=== PATIENT | male | born 1960 | race Two or more races ===

== ENCOUNTER 2020-08-11 15:08 | Emergency (ER) | payer BC ==
[~2020-08-11] VITALS: Ht 185.4 cm; Wt 100.0 kg
--- NOTE | 2020-08-11 15:22 | NUR ---
SYNCOPE AT WORK, FELL OUT OF CHAIR NO URINARY INCOTINENCE HX OF SAME 3 YEARS AGO WITH CARDIOLOGY F/U-NO OBVIOUS CAUSE ROOM AIR 86-88%-DENIES SOB, CP DIABETIC-FSBS 160 ECG OBTAINED PLACED ON SWATCH CHECKER
[2020-08-11] MEDS ORDERED: METF500T27 PO (15:32)
[2020-08-11] MEDS ORDERED: LISI-170 PO (15:32)
[2020-08-11] MEDS ORDERED: EMPA10TA PO (15:32)
[2020-08-11] MEDS ORDERED: GLYB3TAB3 PO (15:32)
[2020-08-11] MEDS ORDERED: SIMV10TA18 PO (15:32)
[2020-08-11 16:10] LABS: BASOPHILS % (AUTO) 1 % (0-1); EOSINOPHILS % (AUTO) 1 % (1-7); LYMPHOCYTES % (AUTO) 30 % (22-44); MEAN CORPUSCULAR HGB CONC 33.6 g/dL (33.2-36.2); MEAN PLATELET VOLUME 8.5 fL (7.4-10.4); MONOCYTES % (AUTO) 9 % (2-9); NEUTROPHILS % (AUTO) 59 % (42-75); PLATELET COUNT 198 x10^3/uL (130-400); RED BLOOD COUNT 4.94 x10^6/uL (4.38-5.82); RED CELL DISTRIBUTION WIDTH 12.9 % (9.4-14.8)
[2020-08-11 16:12] LABS: MD NO
[2020-08-11 16:19] LABS: ALBUMIN 4.3 g/dL (3.4-5.0); ANION GAP 10 mmol/L (5-15); CALCIUM 9.2 mg/dL (8.5-10.1); CHLORIDE 106 mmol/L (98-107); CREATININE 1.12 mg/dL (0.7-1.3)
[2020-08-11 16:23] LABS: TROPONIN I < 0.015 ng/mL (0.000-0.045)
--- NOTE | 2020-08-11 16:30 | NUR ---
PT AMBULATED TO BATHROOM. DENIES DIZZINESS OR CP
[2020-08-11 16:47] VITALS: BP 105/61
--- NOTE | 2020-08-11 17:16 | NUR ---
Patient/Caregiver given discharge instructions and they have confirmed that they understand the instructions. Patient ambulatory with steady gait.
== END 2020-08-11 17:18 | disposition home or self-care (01) ==
LOC: ED 17:12
DX: R55 Syncope and collapse (principal); Z87.891 Personal history of nicotine dependence
CPT/HCPCS: 36415; 80048; 82040; 84484; 85025; 93005; 99284